=== PATIENT | female | born 1960 | race Caucasian/White ===

== ENCOUNTER → 2019-04-17 | Outpatient (CLI) | payer MEDICARE, MEDICAID ==
[~2019-04-17] MED LIST: ALDACTONE50 MG PO; BUSPAR DIVIDOSE15 MG PO; DESYREL DIVIDO150 M1 PO; EFFEXOR XR75 MG/CAP PO; K-TAB20 PO; LASIX 20MG TABL20 MG PO; LATUDA60 MG PO; LEVOXYL0.075 MG PO; MINIPRESS2 MG PO; NEURONTIN600 MG/TAB PO; PROTONIX 40MG T40 MG PO; TOPROL XL 25MG25 MG PO; ZOCOR 40MG40 MG PO
== END ==
LOC: BHSO 10:42
DX: F31.81 Bipolar II disorder (principal)

== ENCOUNTER → 2019-05-15 | Outpatient (CLI) | payer MEDICARE, MEDICAID | LOC: BHSO 10:30 | DX: F31.81 Bipolar II disorder (principal) | CPT/HCPCS: G0463 ==

== ENCOUNTER 2019-06-09 22:46 | Emergency (ER) | payer MEDICARE, MEDICAID ==
[~2019-06-09] VITALS: Ht 172.7 cm; Wt 92.7 kg
[2019-06-09 23:19] LABS: BASO % 0.4 % (0.0-2.0); EOS # 0.2 (0.0-0.7); EOS % 2.9 % (0-4.0); GRAN # 3.1 (1.4-6.5); GRAN % 59.3 % (42.2-75.2); HEMATOCRIT 38.7 % (37.0-47.0); HEMOGLOBIN 12.8 g/dl (12.5-16.0); LYMPH # 1.2 (1.2-3.4); LYMPH % 22.7 % (20.0-51.0); MEAN CELL VOLUME 91 fl (80.0-100.0); MEAN CORPUSCULAR HEMOGLOBIN 30 pg (27.0-31.0); MEAN CORPUSCULAR HGB CONC 33 g/dl (33.0-37.0); MEAN PLATELET VOLUME 10.4 fl (7.4-10.4); MONO # 0.8 (0.1-0.6); MONO % 14.3 % (1.7-9.3); PLATELET COUNT 143 K/mm3 (130-400); RED BLOOD COUNT 4.27 M/mm3 (4.10-5.30); REDCELL DISTRIBUTION WIDTH-CV 13.2 % (11.5-14.5)
[2019-06-09 23:23] LABS: PROTHROMBIN TIME 11.2 SECONDS (9.7-12.8)
[2019-06-09 23:26] LABS: ALBUMIN 4.3 gm/dL (3.5-5.0); BILIRUBIN,TOTAL 0.4 mg/dL (0.0-1.0); CREATININE, serum 1.09 (0.52-1.25); POTASSIUM 3.8 mmol/L (3.4-5.0); TOTAL PROTEIN 7.5 gm/dL (6.4-8.2)
[2019-06-10 01:46] LABS: TROPONIN-I 0.018 ng/mL (0.000-0.035)
[2019-06-10 02:55] VITALS: BP 123/88; PULSE 88; TEMP 99
== END 2019-06-10 02:55 | disposition home or self-care (01) ==
LOC: COL.ER 22:46
PROVIDERS: Emergency Medicine
DX: I50.9 Heart failure, unspecified (principal); I48.91 Unspecified atrial fibrillation; E03.9 Hypothyroidism, unspecified; K21.9 Gastro-esophageal reflux disease without esophagitis; J40 Bronchitis, not specified as acute or chronic; Z98.51 Tubal ligation status; Z95.0 Presence of cardiac pacemaker
CPT/HCPCS: A4216; J0696; J1940

== ENCOUNTER → 2019-08-16 | Outpatient (CLI) | payer MEDICARE, MEDICAID | LOC: BHSO 10:39 | DX: F31.81 Bipolar II disorder (principal) | CPT/HCPCS: G0463 ==

== ENCOUNTER → 2019-09-04 | Outpatient (CLI) | payer MEDICARE, MEDICAID ==
[2019-09-04 11:29] LABS: MEAN CELL VOLUME 91 fl (80.0-100.0); MEAN CORPUSCULAR HEMOGLOBIN 30 pg (27.0-31.0); MEAN CORPUSCULAR HGB CONC 33 g/dl (33.0-37.0); MEAN PLATELET VOLUME 10.1 fl (7.4-10.4); PLATELET COUNT 166 K/mm3 (130-400); REDCELL DISTRIBUTION WIDTH-CV 13.2 % (11.5-14.5)
== END ==
LOC: COL.RAD 11:01
PROVIDERS: Internal Medicine
DX: R50.9 Fever, unspecified (principal); R05 Cough; Z95.9 Presence of cardiac and vascular implant and graft, unspecified

== ENCOUNTER → 2019-09-13 | Outpatient (CLI) | payer MEDICARE, MEDICAID, OTHER | LOC: COL.RAD 14:27 | DX: R05 Cough (principal); Z95.0 Presence of cardiac pacemaker | CPT/HCPCS: Q9967 ==

== ENCOUNTER → 2019-11-01 | Outpatient (CLI) | payer MEDICARE, MEDICAID | LOC: COL.RAD 10:50 | DX: R10.9 Unspecified abdominal pain (principal) ==

== ENCOUNTER → 2019-11-08 | Outpatient (CLI) | payer MEDICARE, MEDICAID | LOC: COL.RAD 11:20 | DX: K57.30 Diverticulosis of large intestine without perforation or abscess without bleeding (principal) ==

== ENCOUNTER → 2019-12-27 | Outpatient (CLI) | payer MEDICARE, MEDICAID | LOC: BHSO 14:07 | DX: F31.81 Bipolar II disorder (principal) | CPT/HCPCS: G0463 ==

== ENCOUNTER 2020-01-18 08:33 | Emergency (ER) | payer MEDICARE, MEDICAID ==
[~2020-01-18] VITALS: Ht 172.7 cm; Wt 95.0 kg
[2020-01-18 08:34] VITALS: TEMP 98.7
[2020-01-18 09:13] LABS: BASO # 0.1 (0.0-0.2); BASO % 0.8 % (0.0-2.0); EOS # 0.1 (0.0-0.7); EOS % 2.1 % (0-4.0); GRAN # 3.3 (1.4-6.5); GRAN % 53.3 % (42.2-75.2); HEMATOCRIT 41.6 % (37.0-47.0); HEMOGLOBIN 14.1 g/dl (12.5-16.0); LYMPH % 31.7 % (20.0-51.0); MEAN CELL VOLUME 93 fl (80.0-100.0); MEAN CORPUSCULAR HEMOGLOBIN 32 pg (27.0-31.0); MEAN CORPUSCULAR HGB CONC 34 g/dl (33.0-37.0); MEAN PLATELET VOLUME 10.5 fl (7.4-10.4); MONO # 0.7 (0.1-0.6); MONO % 11.8 % (1.7-9.3); PLATELET COUNT 174 K/mm3 (130-400); RED BLOOD COUNT 4.47 M/mm3 (4.10-5.30); REDCELL DISTRIBUTION WIDTH-CV 12.3 % (11.5-14.5)
[2020-01-18 09:17] LABS: INR 1.2 (0.8-3.0); PROTHROMBIN TIME 13.2 SECONDS (9.7-12.8)
[2020-01-18 09:20] LABS: PARTIAL THROMBOPLASTIN TIME 39.5 SECONDS (26.0-37.0)
[2020-01-18 09:20] LABS: COLLECTION METHOD CLEAN CATCH
[2020-01-18 09:25] LABS: ALBUMIN 4.4 gm/dL (3.5-5.0); BILIRUBIN,TOTAL 0.6 mg/dL (0.0-1.0); CALCIUM 9.6 mg/dL (8.4-10.2); CREATININE, serum 1.14 (0.52-1.25); POTASSIUM 4.1 mmol/L (3.4-5.0); TOTAL PROTEIN 7.8 gm/dL (6.4-8.2)
[2020-01-18 09:27] LABS: PH 5 (5-8); SQUAMOUS EPITHELIAL 0-2 /hpf; URINE APPEARANCE Clear; URINE BACTERIA None Seen /hpf; URINE BILIRUBIN Negative (NEGATIVE); URINE BLOOD Negative (NEGATIVE); URINE COLOR Straw; URINE GLUCOSE Negative (NEGATIVE); URINE KETONE Negative (NEGATIVE); URINE LEUKOCYTE ESTERASE 1+ (NEGATIVE); URINE NITRATE Negative (NEGATIVE); URINE PROTEIN(semi-quant) Negative (NEGATIVE); URINE RBC 0-2 /hpf; URINE UROBILINOGEN Negative (NEGATIVE)
[2020-01-18 09:36] LABS: TROPONIN-I 0.016 ng/mL (0.000-0.035)
[2020-01-18 10:04] VITALS: BP 115/81; PULSE 80
== END 2020-01-18 10:08 | disposition home or self-care (01) ==
LOC: COL.ER 08:33
PROVIDERS: Family Medicine
DX: R55 Syncope and collapse (principal); I50.9 Heart failure, unspecified; Z95.9 Presence of cardiac and vascular implant and graft, unspecified

== ENCOUNTER 2020-02-12 06:53 | Day surgery (SDC) | payer MEDICARE, MEDICAID ==
[~2020-02-12] VITALS: Ht 172.7 cm; Wt 96.3 kg
[2020-02-12] MEDS ORDERED: SYNTHROID0.075 MG/T PO (07:17)
[2020-02-12] MEDS ORDERED: ENTRESTO 24 MG1 EACH PO (07:17)
[2020-02-12] MEDS ORDERED: PROTONIX 40MG T40 MG PO (07:17)
[2020-02-12] MEDS ORDERED: ASPIRIN 81M81 MG/TA2 PO (07:18)
[2020-02-12] MEDS ORDERED: ALDACTONE50 MG PO (07:18)
[2020-02-12] MEDS ORDERED: DIGITEK0.25 MG PO (07:19)
[2020-02-12] MEDS ORDERED: BUSPAR DIVIDOSE15 MG PO (07:19)
[2020-02-12] MEDS ORDERED: NEURONTIN600 MG/TAB PO (07:19)
[2020-02-12] MEDS ORDERED: EFFEXOR-XR150 MG PO (07:20)
[2020-02-12] MEDS ORDERED: DESYREL DIVIDO150 M1 PO (07:20)
[2020-02-12 07:21] VITALS: BP 123/79; PULSE 84; TEMP 97.6
[2020-02-12] MEDS ORDERED: VRAYLAR4.5 MG PO (07:21)
[2020-02-12] MEDS ORDERED: ELIQUIS 2.5 PO (07:21)
[2020-02-12 10:15] VITALS: BP 143/82; PULSE 75; TEMP 97.7
--- NOTE | 2020-02-12 10:15 | NUR ---
The patient arrived back to [facility] from the endoscopy suite at this time. The patient ambulated from the cart to the bathroom and then to the recliner in her room with stand by assistance of one nurse and appeared to tolerate the activity well. Post operative vital signs were started at this time. The patient requests to try some ice water and a muffin at this time. Call light is within reach. Will continue to monitor the patient.
[2020-02-12 10:30] VITALS: BP 124/83; PULSE 85
--- NOTE | 2020-02-12 10:30 | NUR ---
The patient appears to be tolerating the food and drink well. The patient requests to try some coffee also at this time. The patient's vital signs appear stable. Call light is within reach. Will continue to monitor the patient.
[2020-02-12 10:45] VITALS: BP 116/79; PULSE 88
--- NOTE | 2020-02-12 10:45 | NUR ---
The patient verbalizes a desire to be discharged home. The patient's IV to her right anecubital was removed and a pressure dressing was applied to the site. The nurse instructed the patient to get dressed and notify the staff when she is ready to review her discharge paperwork.
--- NOTE | 2020-02-12 11:15 | NUR ---
Discharge instructions were reviewed with the patient at this time. She verbalized understanding and has no questions for the nurse at this time. The patient is dressed and ready to be escorted out.
--- NOTE | 2020-02-12 11:25 | NUR ---
The patient was escorted out via wheelchair to a private vehicle by CANDIDO Ratliff. The patient's belongings and discharge paperwork were sent with her. The patient's friend is present to drive her home.
== END 2020-02-12 11:25 | disposition home or self-care (01) ==
LOC: SDCO 06:53
DX: D12.4 Benign neoplasm of descending colon (principal); K64.0 First degree hemorrhoids; K57.30 Diverticulosis of large intestine without perforation or abscess without bleeding; K31.7 Polyp of stomach and duodenum; K29.30 Chronic superficial gastritis without bleeding; N18.9 Chronic kidney disease, unspecified; K58.0 Irritable bowel syndrome with diarrhea; E03.9 Hypothyroidism, unspecified; I50.20 Unspecified systolic (congestive) heart failure; I42.0 Dilated cardiomyopathy; I34.0 Nonrheumatic mitral (valve) insufficiency; I25.2 Old myocardial infarction; M79.7 Fibromyalgia; F31.9 Bipolar disorder, unspecified; F41.9 Anxiety disorder, unspecified; M19.90 Unspecified osteoarthritis, unspecified site; Z88.1 Allergy status to other antibiotic agents; Z95.810 Presence of automatic (implantable) cardiac defibrillator; Z88.8 Allergy status to other drugs, medicaments and biological substances; Z79.82 Long term (current) use of aspirin; Z79.01 Long term (current) use of anticoagulants; Z79.899 Other long term (current) drug therapy
CPT/HCPCS: J2704; J7030

== ENCOUNTER → 2020-03-26 | Outpatient (CLI) | payer MEDICARE, MEDICAID ==
[~2020-03-26] MED LIST changes: +ASPIRIN 81M81 MG/TA2 PO; +DIGITEK0.25 MG PO; +EFFEXOR-XR150 MG PO; +ELIQUIS 2.5 PO; +ENTRESTO 24 MG1 EACH PO; +SYNTHROID0.075 MG/T PO; +VRAYLAR4.5 MG PO
== END ==
LOC: MC.RAD 07:45
DX: Z12.31 Encounter for screening mammogram for malignant neoplasm of breast (principal)

== ENCOUNTER → 2020-03-27 | Outpatient (CLI) | payer MEDICARE, MEDICAID | LOC: BHSO 14:06 | DX: F31.81 Bipolar II disorder (principal) | CPT/HCPCS: G0463 ==

== ENCOUNTER → 2020-04-23 | Outpatient (CLI) | payer MEDICARE, MEDICAID ==
[~2020-04-23] VITALS: Ht 170.2 cm; Wt 99.1 kg
[~2020-04-23] MED LIST changes: -ASPIRIN 81M81 MG/TA2 PO; +ASPIRIN E.C. 8181 MG PO; +BYSTOLIC2.5 MG PO; +VYTORIN 10 MG-21 TAB PO
[2020-04-23 09:16] VITALS: BP 110/80; PULSE 76
== END ==
LOC: LIGHT 08:49
DX: E66.8 Other obesity (principal); Z68.34 Body mass index [BMI] 34.0-34.9, adult; E88.81 Metabolic syndrome and other insulin resistance; R73.01 Impaired fasting glucose
CPT/HCPCS: G0463

== ENCOUNTER → 2020-05-15 | Outpatient (CLI) | payer MEDICARE, MEDICAID ==
[~2020-05-15] VITALS: Ht 170.2 cm; Wt 99.6 kg
[~2020-05-15] MED LIST changes: -BYSTOLIC2.5 MG PO; +BYSTOLIC5 MG PO
[2020-05-15 11:30] VITALS: BP 118/76; PULSE 80
== END ==
LOC: LIGHT 11:26
DX: E66.8 Other obesity (principal); Z68.34 Body mass index [BMI] 34.0-34.9, adult; E88.81 Metabolic syndrome and other insulin resistance; R73.01 Impaired fasting glucose
CPT/HCPCS: G0463

== ENCOUNTER 2020-12-24 17:03 | Observation (INO) | payer MEDICARE, MEDICAID ==
[~2020-12-24] VITALS: Ht 170.2 cm; Wt 104.0 kg
[2020-12-24] MEDS ORDERED: REXULTI1 MG PO ×2 (17:22→21:44)
[2020-12-24 17:31] LABS: BASO % 0.6 % (0.0-2.0); EOS # 0.2 (0.0-0.7); EOS % 2.2 % (0-4.0); GRAN # 3.7 (1.4-6.5); GRAN % 54.2 % (42.2-75.2); HEMATOCRIT 40.2 % (37.0-47.0); HEMOGLOBIN 13.8 g/dl (12.5-16.0); LYMPH # 2.1 (1.2-3.4); LYMPH % 31.2 % (20.0-51.0); MEAN CELL VOLUME 94 fl (80.0-100.0); MEAN CORPUSCULAR HEMOGLOBIN 32 pg (27.0-31.0); MEAN CORPUSCULAR HGB CONC 34 g/dl (33.0-37.0); MEAN PLATELET VOLUME 10.3 fl (7.4-10.4); MONO # 0.8 (0.1-0.6); MONO % 11.5 % (1.7-9.3); PLATELET COUNT 176 K/mm3 (130-400); RED BLOOD COUNT 4.27 M/mm3 (4.10-5.30); REDCELL DISTRIBUTION WIDTH-CV 12.4 % (11.5-14.5)
[2020-12-24 17:44] LABS: ALANINE AMINOTRANSFERASE 33 U/L (4-34); ALBUMIN 4.5 gm/dL (3.5-5.0); ALKALINE PHOSPHATASE 53 U/L (50-136); ANION GAP 8 mmol/L (7-16); AST,SGOT 27 U/L (15-37); BILIRUBIN,TOTAL 0.4 mg/dL (0.0-1.0); BLOOD UREA NITROGEN 26 mg/dL (7-17); C-REACTIVE PROTEIN 0.8 mg/dL (0.0-0.9); CALCIUM 9.9 mg/dL (8.4-10.2); CARBON DIOXIDE 25 mmol/L (22-30); CHLORIDE 106 mmol/L (98-107); CREATININE, serum 1.22 (0.52-1.25); GLUCOSE 95 mg/dL (74-106); LIPASE 166 U/L (23-300); POTASSIUM 4.4 mmol/L (3.4-5.0); SODIUM 139 mmol/L (137-145); TOTAL PROTEIN 7.6 gm/dL (6.4-8.2)
[2020-12-24 17:48] LABS: INR 1.2 (0.8-3.0); PROTHROMBIN TIME 13.5 SECONDS (9.7-12.8)
[2020-12-24] MEDS ORDERED: LAMICTAL 100MG100 MG PO (18:02)
[2020-12-24 18:05] LABS: TROPONIN-I < 0.012 ng/mL (0.000-0.035)
[2020-12-24] MEDS ORDERED: FARXIGA5 PO (18:05)
[2020-12-24] MEDS ORDERED: MELATONIN5 M1 PO (18:06)
[2020-12-24] MEDS ORDERED: ENTRESTO 49 MG1 EACH PO (18:55)
[2020-12-24] MEDS ORDERED: NEURONTIN600 MG/TAB PO (19:29)
--- NOTE | 2020-12-24 21:00 | NUR ---
PT ADMITTED TO ROOM 346 PER BED. A&OX4. DENIES PAIN,OR SHORTNESS OF BREATH.
[2020-12-24 21:15] LABS: TSH w REFLEX 1.28 uIU/mL (0.465-4.680)
[2020-12-24 21:33] VITALS: BP 114/60; PULSE 65; TEMP 98.3
--- NOTE | 2020-12-24 22:30 | NUR ---
PT JUST FINSHED SANDWICH BOX AND TOOK HS MEDICATIONS. NOW C/O CHEST PAIN LEVEL 3/10 LT SUBSTERNAL. NO DYSPNEA. PT QUIETLY IN BED.
--- NOTE | 2020-12-24 22:50 | NUR ---
PT RELATES FEELS BETTER NOW. MOSTLY RESOLVED. ATTEMPTED TO NOTIFY [facility] TO REQUEST PO PAIN MED. WILL ATTEMPT AGAIN.
[2020-12-24 23:50] VITALS: BP 93/51; PULSE 65; TEMP 98.1
--- NOTE | 2020-12-25 01:11 | NUR ---
PT WAKES ON THIS NURSE ENTERING ROOM. PT REPORTS CHEST PAIN IS MUCH BETTER NOW. PT REPORTS JUST FEELS ALITTLE ANXIOUS BEING IN THE HOSPITAL. IV NS AT 30CC/HR PER PUMP TO RT HAND SITE.
[2020-12-25 03:27] VITALS: BP 106/66; PULSE 74; TEMP 98
--- NOTE | 2020-12-25 04:01 | NUR ---
SEE MAR FOR MS AND MAALOX GIVEN FOR EPIGASTRIC PAIN. LEVEL 2-3/10
[2020-12-25 06:58] LABS: BASO % 0.8 % (0.0-2.0); EOS # 0.1 (0.0-0.7); EOS % 2.5 % (0-4.0); GRAN # 2.6 (1.4-6.5); GRAN % 49.6 % (42.2-75.2); HEMATOCRIT 40.2 % (37.0-47.0); HEMOGLOBIN 13.3 g/dl (12.5-16.0); LYMPH # 1.9 (1.2-3.4); MEAN CORPUSCULAR HEMOGLOBIN 33 pg (27.0-31.0); MEAN CORPUSCULAR HGB CONC 33 g/dl (33.0-37.0); MEAN PLATELET VOLUME 10.7 fl (7.4-10.4); MONO # 0.6 (0.1-0.6); MONO % 11.7 % (1.7-9.3); PLATELET COUNT 169 K/mm3 (130-400); RED BLOOD COUNT 4.08 M/mm3 (4.10-5.30); REDCELL DISTRIBUTION WIDTH-CV 12.5 % (11.5-14.5)
[2020-12-25 07:00] LABS: MEAN CELL VOLUME 99 fl (80.0-100.0)
[2020-12-25 07:08] LABS: CHOLESTEROL 162 mg/dL (120-200); HDL CHOLESTEROL 32 mg/dL; LDL CHOLESTEROL 69 mg/dL; TRIGLYCERIDE 305 mg/dL
[2020-12-25 07:17] VITALS: BP 104/60; PULSE 68; TEMP 98
[2020-12-25 07:34] LABS: TROPONIN-I < 0.012 ng/mL (0.000-0.035)
--- NOTE | 2020-12-25 08:00 | NUR ---
Patient sitting up in bed. Alert and oriented x 3. Assessment complete. States mild mid-epigastric pain 2/10, denies needs for pain medication at this time. Fluids infusing per orders. Denies needs at this time.
--- NOTE | 2020-12-25 10:46 | NUR ---
Dr. Bello in to see patient.
--- NOTE | 2020-12-25 11:11 | NUR ---
Foil Stamp Operator met with the patient to complete intake. The patient lives alone in [place]. The patient is independent and denies DME use. The patient has a pacemaker. The patient currently does OP Cardiac Rehab at Dr. Son's office twice a week on Tuesdays and for 45 minutes. The patient also pays $182 (Medicare pays the rest) a week for a EHS SPECIALIST from [facility]. The EHS SPECIALIST provides light housekeeping and meal prep. Per EMR the patient's PCP is Dr. Tatiana Cid and receives medications from [facility]. The patient has advanced directives in the EMR. The patient plans to return home and continue OP cardiac rehab and EHS SPECIALIST assistance from [facility]. The patient was interested in contacted her Magaly Roy RN, CM. SW attempted to contact kavin Mckenzie message. *Discharge Disposition: Home with continued OP cardiac rehab and EHS SPECIALIST assistance from [facility]*
--- NOTE | 2020-12-25 11:22 | NUR ---
Patient is lying in bed resting. Alert and oriented x4, vital signs stable, no pain, nausea or vomiting at the moment. Report disconfort in the midline of the chest rating 2 in a 10 scale for pain. Patient is NPO but reports hungry and thirsty. No additional needs at the moment. Call light witghing reach.
[2020-12-25 11:51] VITALS: BP 119/61; PULSE 66; TEMP 97.8
--- NOTE | 2020-12-25 12:50 | NUR ---
Patient up ambulating in [place] independently, steady gait.
--- NOTE | 2020-12-25 13:21 | NUR ---
Initial visit; Patient thanked Business Integration Analyst for looking in on her, praying with her and keeping her in Business Integration Analyst's prayers.
== END 2020-12-25 16:28 | disposition home or self-care (01) ==
LOC: COL.ER 17:03 → MEDICAL 18:23 → SURG 18:42
PROVIDERS: Nurse Practitioner; Nurse Practitioner Family; ADMIT Student in an Organized Health Care Education/Training Program
DX: R07.89 Other chest pain (principal); I50.22 Chronic systolic (congestive) heart failure; I11.0 Hypertensive heart disease with heart failure; E78.5 Hyperlipidemia, unspecified; E03.9 Hypothyroidism, unspecified; K21.9 Gastro-esophageal reflux disease without esophagitis; M79.7 Fibromyalgia; F31.9 Bipolar disorder, unspecified; F41.1 Generalized anxiety disorder; F41.0 Panic disorder [episodic paroxysmal anxiety]; F43.10 Post-traumatic stress disorder, unspecified; Z79.890 Hormone replacement therapy; Z79.899 Other long term (current) drug therapy; Z79.82 Long term (current) use of aspirin; Z87.891 Personal history of nicotine dependence; Z80.3 Family history of malignant neoplasm of breast; Z83.3 Family history of diabetes mellitus; Z79.891 Long term (current) use of opiate analgesic
CPT/HCPCS: G0378; J2270; J7030

== ENCOUNTER 2021-02-20 06:42 | Emergency (ER) | payer MEDICARE, MEDICAID ==
[~2021-02-20] VITALS: Ht 170.2 cm; Wt 97.3 kg
[~2021-02-20 06:42] MED LIST changes: +ENTRESTO 49 MG1 EACH PO; +FARXIGA5 PO; +LAMICTAL 100MG100 MG PO; +MELATONIN5 M1 PO; +REXULTI1 MG PO
[2021-02-20 06:45] VITALS: TEMP 98.6
[2021-02-20 07:36] LABS: ALBUMIN 4.5 gm/dL (3.5-5.0); BILIRUBIN,TOTAL 0.4 mg/dL (0.0-1.0); CALCIUM 9.7 mg/dL (8.4-10.2); CREATININE, serum 1.21 (0.52-1.25); POTASSIUM 4.2 mmol/L (3.4-5.0)
[2021-02-20 07:37] LABS: INR 1.1 (0.8-3.0); PROTHROMBIN TIME 12.5 SECONDS (9.7-12.8)
[2021-02-20 07:41] LABS: BASO # 0.1 (0.0-0.2); BASO % 1.1 % (0.0-2.0); EOS # 0.3 (0.0-0.7); EOS % 4.8 % (0-4.0); GRAN # 3.4 (1.4-6.5); GRAN % 47.7 % (42.2-75.2); HEMATOCRIT 41.5 % (37.0-47.0); HEMOGLOBIN 13.9 g/dl (12.5-16.0); LYMPH # 2.5 (1.2-3.4); LYMPH % 35.9 % (20.0-51.0); MEAN CELL VOLUME 95 fl (80.0-100.0); MEAN CORPUSCULAR HEMOGLOBIN 32 pg (27.0-31.0); MEAN CORPUSCULAR HGB CONC 34 g/dl (33.0-37.0); MEAN PLATELET VOLUME 10.8 fl (7.4-10.4); MONO # 0.7 (0.1-0.6); MONO % 10.4 % (1.7-9.3); PLATELET COUNT 181 K/mm3 (130-400); RED BLOOD COUNT 4.38 M/mm3 (4.10-5.30); REDCELL DISTRIBUTION WIDTH-CV 12.4 % (11.5-14.5)
[2021-02-20 07:58] LABS: TROPONIN-I 0.036 ng/mL (0.000-0.035)
[2021-02-20] MEDS ORDERED: LASIX 40MG TABL40 MG PO (11:04)
[2021-02-20 11:55] VITALS: BP 110/71; PULSE 71
== END 2021-02-20 12:00 | disposition home or self-care (01) ==
LOC: COL.ER 06:42
PROVIDERS: Family Medicine
DX: R07.89 Other chest pain (principal); I10 Essential (primary) hypertension; E11.40 Type 2 diabetes mellitus with diabetic neuropathy, unspecified; F41.9 Anxiety disorder, unspecified; E03.9 Hypothyroidism, unspecified; R74.8 Abnormal levels of other serum enzymes; M79.7 Fibromyalgia; K21.9 Gastro-esophageal reflux disease without esophagitis; F31.9 Bipolar disorder, unspecified; F41.1 Generalized anxiety disorder; Z79.899 Other long term (current) drug therapy; Z79.890 Hormone replacement therapy; Z79.01 Long term (current) use of anticoagulants; Z87.891 Personal history of nicotine dependence; Z95.0 Presence of cardiac pacemaker
CPT/HCPCS: J1940

== ENCOUNTER → 2021-02-26 | Outpatient (CLI) | payer MEDICARE, MEDICAID ==
[~2021-02-26] MED LIST changes: +LASIX 40MG TABL40 MG PO
== END ==
LOC: ZCOL.LAB 12:21
DX: M62.89 Other specified disorders of muscle (principal); I50.9 Heart failure, unspecified; E66.9 Obesity, unspecified

== ENCOUNTER → 2021-06-30 | Outpatient (CLI) | payer MEDICARE, MEDICAID ==
[2021-06-30 17:59] LABS: BASO # 0.1 K/mm3 (0.0-0.2); BASO % 0.9 % (0.0-2.0); EOS # 0.2 K/mm3 (0.0-0.7); EOS % 2.9 % (0.0-4.0); GRAN # 3.3 K/mm3 (1.4-6.5); GRAN % 50.7 % (42.2-75.2); HEMATOCRIT 39.9 % (37.0-47.0); HEMOGLOBIN 13.4 g/dl (12.5-16.0); LYMPH # 2.3 K/mm3 (1.2-3.4); LYMPH % 34.2 % (20.0-51.0); MEAN CELL VOLUME 95 fl (80.0-100.0); MEAN CORPUSCULAR HEMOGLOBIN 32 pg (27-31); MEAN CORPUSCULAR HGB CONC 34 g/dl (33.0-37.0); MONO # 0.7 K/mm3 (0.1-0.6); MONO % 10.8 % (1.7-9.3); PLATELET COUNT 167 K/mm3 (130-400); RED BLOOD COUNT 4.19 M/mm3 (4.10-5.30); REDCELL DISTRIBUTION WIDTH-CV 12.9 % (11.5-14.5)
[2021-06-30 18:13] LABS: ALBUMIN 4.3 gm/dL (3.4-4.8); BILIRUBIN,TOTAL 0.4 mg/dL (0.2-1.2); C-REACTIVE PROTEIN 0.55 mg/dL (0.00-0.50); CALCIUM 9.3 mg/dL (8.4-10.2); CREATININE, serum 1.42 mg/dL (0.57-1.11); MAGNESIUM 2.3 mg/dL (1.6-2.6); TOTAL PROTEIN 7.7 gm/dL (6.2-8.1)
[2021-06-30 18:19] LABS: TROPONIN-I 0.013 ng/mL (0.00-0.033)
[2021-06-30 18:31] LABS: ERYTHROCYTE SEDIMENTATION RATE 9 mm/hr (0-30)
== END ==
LOC: ZCOL.LAB 17:17
PROVIDERS: Nurse Practitioner
DX: Z45.02 Encounter for adjustment and management of automatic implantable cardiac defibrillator (principal); I50.22 Chronic systolic (congestive) heart failure

== ENCOUNTER → 2021-07-08 | Outpatient (CLI) | payer MEDICARE, MEDICAID | LOC: MC.RAD 12:52 | DX: Z12.31 Encounter for screening mammogram for malignant neoplasm of breast (principal) ==

== ENCOUNTER 2021-08-03 21:08 | Emergency (ER) | payer MEDICARE, MEDICAID ==
[~2021-08-03] VITALS: Ht 170.2 cm; Wt 113.6 kg
[2021-08-03 21:24] LABS: BASO # 0.1 K/mm3 (0.0-0.2); BASO % 0.7 % (0.0-2.0); EOS # 0.2 K/mm3 (0.0-0.7); EOS % 3.1 % (0.0-4.0); GRAN # 3.3 K/mm3 (1.4-6.5); HEMATOCRIT 39.3 % (37.0-47.0); HEMOGLOBIN 13.8 g/dl (12.5-16.0); LYMPH # 2.4 K/mm3 (1.2-3.4); LYMPH % 35.8 % (20.0-51.0); MEAN CELL VOLUME 94 fl (80.0-100.0); MEAN CORPUSCULAR HEMOGLOBIN 33 pg (27-31); MEAN CORPUSCULAR HGB CONC 35 g/dl (33.0-37.0); MONO # 0.7 K/mm3 (0.1-0.6); MONO % 10.7 % (1.7-9.3); PLATELET COUNT 158 K/mm3 (130-400); RED BLOOD COUNT 4.17 M/mm3 (4.10-5.30); REDCELL DISTRIBUTION WIDTH-CV 12.8 % (11.5-14.5)
[2021-08-03 21:45] LABS: ALANINE AMINOTRANSFERASE 38 U/L (0-55); ALBUMIN 4.2 gm/dL (3.4-4.8); ALKALINE PHOSPHATASE 60 U/L (40-150); ANION GAP 14 mmol/L (7-16); AST,SGOT 20 U/L (5-34); BILIRUBIN,TOTAL 0.3 mg/dL (0.2-1.2); BLOOD UREA NITROGEN 16 mg/dL (10-20); CARBON DIOXIDE 22 mmol/L (23-31); CHLORIDE 104 mmol/L (98-107); GLUCOSE 175 mg/dL (70-99); SODIUM 140 mmol/L (136-145); TOTAL PROTEIN 7.8 gm/dL (6.2-8.1)
[2021-08-03 22:07] LABS: ALCOHOL(ethanol),MEDICAL < 10 mg/dL (0-10); CREATININE, serum 1.34 mg/dL (0.57-1.11); SALICYLATE < 5.0 mg/dL (15.0-30.0)
[2021-08-03 22:33] LABS: COLLECTION METHOD CLEAN CATCH
[2021-08-03 22:39] LABS: PH 5 (5-8); URINE APPEARANCE Hazy (CLEAR/HAZY); URINE BACTERIA Rare /hpf (NONE SEEN); URINE BILIRUBIN Negative (NEGATIVE); URINE BLOOD Negative (NEGATIVE); URINE COLOR Yellow (YELLOW); URINE GLUCOSE 2+ (NEGATIVE); URINE KETONE Negative (NEGATIVE); URINE LEUKOCYTE ESTERASE Trace (NEGATIVE); URINE NITRATE Negative (NEGATIVE); URINE PROTEIN(semi-quant) Negative (NEGATIVE); URINE RBC 0-2 /hpf (0-2); URINE UROBILINOGEN Negative (NEGATIVE)
[2021-08-03 22:51] LABS: TRICYCLIC ANTIDEPRESS URINE NEGATIVE
[2021-08-04 00:55] VITALS: BP 133/79; PULSE 70; TEMP 98
== END 2021-08-04 00:55 | disposition short-term general hospital (02) ==
LOC: COL.ER 21:08
PROVIDERS: Student in an Organized Health Care Education/Training Program
DX: T40.2X2A Poisoning by other opioids, intentional self-harm, initial encounter (principal); T14.91XA Suicide attempt, initial encounter; I50.9 Heart failure, unspecified; I11.0 Hypertensive heart disease with heart failure; F32.A Depression, unspecified; Z79.82 Long term (current) use of aspirin; Z79.899 Other long term (current) drug therapy; X83.8XXA Intentional self-harm by other specified means, initial encounter

== ENCOUNTER 2021-08-30 14:49 | Emergency (ER) | payer MEDICARE, MEDICAID ==
[~2021-08-30] VITALS: Ht 170.2 cm; Wt 104.1 kg
[2021-08-30 14:50] VITALS: TEMP 99
[2021-08-30] MEDS ORDERED: MEDROL 4MG DOSPA4 MG PO (15:49)
[2021-08-30] MEDS ORDERED: FLEXERIL 1010 MG/TAB PO (15:50)
[2021-08-30 16:20] VITALS: BP 123/83; PULSE 72
== END 2021-08-30 16:20 | disposition home or self-care (01) ==
LOC: COL.ER 14:49
DX: M54.16 Radiculopathy, lumbar region (principal); I11.0 Hypertensive heart disease with heart failure; I50.20 Unspecified systolic (congestive) heart failure; E78.5 Hyperlipidemia, unspecified; E03.9 Hypothyroidism, unspecified; K21.9 Gastro-esophageal reflux disease without esophagitis; M79.7 Fibromyalgia; F31.9 Bipolar disorder, unspecified; F60.3 Borderline personality disorder; F41.0 Panic disorder [episodic paroxysmal anxiety]; Z87.891 Personal history of nicotine dependence; Z79.82 Long term (current) use of aspirin; Z79.890 Hormone replacement therapy; Z79.899 Other long term (current) drug therapy

== ENCOUNTER 2022-01-26 22:08 | Inpatient (IN) | payer MEDICARE, MEDICAID ==
[~2022-01-26] VITALS: Ht 172.7 cm; Wt 103.9 kg
[~2022-01-26 22:08] MED LIST changes: +FLEXERIL 1010 MG/TAB PO; +MEDROL 4MG DOSPA4 MG PO
[2022-01-26 22:46] LABS: HEMATOCRIT 39.5 % (37.0-47.0); HEMOGLOBIN 13.4 g/dl (12.5-16.0); MEAN CELL VOLUME 96 fl (80.0-100.0); MEAN CORPUSCULAR HEMOGLOBIN 33 pg (27-31); MEAN CORPUSCULAR HGB CONC 34 g/dl (33.0-37.0); MEAN PLATELET VOLUME 10.1 fl (7.4-10.4); PLATELET COUNT 172 K/mm3 (130-400); REDCELL DISTRIBUTION WIDTH-CV 12.9 % (11.5-14.5)
[2022-01-26 23:08] LABS: ALBUMIN 3.9 gm/dL (3.4-4.8); BILIRUBIN,TOTAL 0.4 mg/dL (0.2-1.2); C-REACTIVE PROTEIN 0.56 mg/dL (0.00-0.50); CALCIUM 8.8 mg/dL (8.4-10.2); CREATININE, serum 2.03 mg/dL (0.57-1.11); POTASSIUM 4.2 mmol/L (3.5-4.5); TOTAL PROTEIN 7.1 gm/dL (6.2-8.1)
[2022-01-26 23:15] LABS: TROPONIN-I 0.012 ng/mL (0.00-0.033)
[2022-01-26 23:42] LABS: COLLECTION METHOD CLEAN CATCH
[2022-01-26 23:51] LABS: MUCOUS Present (NOT PRESENT); PH 5 (5-8); SQUAMOUS EPITHELIAL 0-2 /hpf (0-10); URINE APPEARANCE Clear (CLEAR/HAZY); URINE BACTERIA Rare /hpf (NONE SEEN); URINE BLOOD Negative (NEGATIVE); URINE COLOR Yellow (YELLOW); URINE GLUCOSE 3+ (NEGATIVE); URINE KETONE Negative (NEGATIVE); URINE NITRATE Negative (NEGATIVE); URINE PROTEIN(semi-quant) Negative (NEGATIVE); URINE RBC 0-2 /hpf (0-2); URINE UROBILINOGEN Negative (NEGATIVE)
[2022-01-26 23:52] LABS: BAND 2 % (0-10); EOSINOPHIL 24 % (0-4); LYMPHOCYTE 28 % (20.0-51.0); NEUTROPHILS 38 % (42.0-75.2); PLATELET ESTIMATE NORMAL (NORMAL)
[2022-01-27] VITALS (761 sets, daily range): BP systolic 97–117; BP diastolic 45–67; PULSE 60–74; TEMP 98.1–98.6; O2SAT 81–100
[2022-01-27] MEDS ORDERED: LAMICTAL 100MG100 MG PO (03:09)
[2022-01-27] MEDS ORDERED: DESYREL 100MG100 MG PO (03:10)
[2022-01-27] MEDS ORDERED: ELIQUIS 2.5 PO (03:11)
[2022-01-27] MEDS ORDERED: ENTRESTO 49 MG1 EACH PO ×2 (03:12→03:13)
[2022-01-27] MEDS ORDERED: FARXIGA10 PO (03:14)
[2022-01-27] MEDS ORDERED: LATUDA60 MG PO (03:14)
[2022-01-27] MEDS ORDERED: VERQUVO10 MG PO (03:14)
--- NOTE | 2022-01-27 05:48 | NUR ---
PATIENT ARRIVED TO ICU 4 AT 312. PATIENT ALERT AND ORIENTATED. OFF LEVOPHED SINCE 129. ALL QUESTIONS ANSWERED ORIENTATED TO ICU.
--- NOTE | 2022-01-27 07:00 | NUR ---
BEDSIDE REPORT RECEIVED FROM CANDIDO SHARMA. PT ALERT AND ORIENTED THIS AM. OFFERS NO COMPLAINTS. 20G PIV TO LEFT HAND AND 20G PIV TO LEFT AC.
--- NOTE | 2022-01-27 07:23 | NUR ---
Report given to CANDIDO Garcia
[2022-01-27 07:34] LABS: CALCIUM 8.5 mg/dL (8.4-10.2); CREATININE, serum 1.48 mg/dL (0.57-1.11); MAGNESIUM 2.1 mg/dL (1.6-2.6); POTASSIUM 4.6 mmol/L (3.5-4.5)
[2022-01-27 08:22] LABS: HEMATOCRIT 38.9 % (37.0-47.0); HEMOGLOBIN 12.8 g/dl (12.5-16.0); MEAN CELL VOLUME 99 fl (80.0-100.0); MEAN CORPUSCULAR HEMOGLOBIN 33 pg (27-31); MEAN CORPUSCULAR HGB CONC 33 g/dl (33.0-37.0); MEAN PLATELET VOLUME 11.1 fl (7.4-10.4); RED BLOOD COUNT 3.92 M/mm3 (4.10-5.30)
[2022-01-27 08:23] LABS: PLATELET COUNT 63 K/mm3 (130-400)
[2022-01-27 08:28] LABS: BAND 1 % (0-10); EOSINOPHIL 17 % (0-4); LYMPHOCYTE 37 % (20.0-51.0); NEUTROPHILS 39 % (42.0-75.2); PLATELET ESTIMATE DECREASED (NORMAL)
--- NOTE | 2022-01-27 09:39 | NUR ---
welfare worker met with patient to complete intake. Patient currently lives at home alone in [place]. Patient is mostly independent with her ADL's but does have SOFTWARE APPLICATIONS SPECIALIST through [facility] that comes in to do meal preps and laundry. Patient does not utilize any DME to assist with mobility. Patient has no home oxygen needs. PCP is Dr. Tatiana Cid and she utilizes [facility] pharmacy with no cost difficulty. Patient does have a DPOA-HC established and can be found in her EMR listing her daughter Jerilyn ([phone]).
[2022-01-27 15:29] LABS: CLOSTRIDIUM DIFF A/B NEG; CLOSTRIDIUM DIFF A/B INTERP NonToxigenic C.diff
--- NOTE | 2022-01-27 19:24 | NUR ---
REPORT CALLED TO BOLA REY
--- NOTE | 2022-01-27 19:32 | NUR ---
PATIENT TRANSFERRED TO [facility]. REFUSED TO LET STAFF TAKE HOME MEDS.
[2022-01-28] VITALS (7 sets, daily range): BP systolic 96–142; BP diastolic 45–70; PULSE 59–73; TEMP 98–99.2
[2022-01-28 05:56] LABS: BASO # 0.1 K/mm3 (0.0-0.2); EOS # 1.2 K/mm3 (0.0-0.7); EOS % 17.3 % (0.0-4.0); GRAN # 3.2 K/mm3 (1.4-6.5); GRAN % 46.7 % (42.2-75.2); HEMATOCRIT 37.5 % (37.0-47.0); HEMOGLOBIN 12.6 g/dl (12.5-16.0); LYMPH # 1.9 K/mm3 (1.2-3.4); LYMPH % 27.1 % (20.0-51.0); MEAN CELL VOLUME 98 fl (80.0-100.0); MEAN CORPUSCULAR HEMOGLOBIN 33 pg (27-31); MEAN CORPUSCULAR HGB CONC 34 g/dl (33.0-37.0); MEAN PLATELET VOLUME 10.3 fl (7.4-10.4); MONO # 0.5 K/mm3 (0.1-0.6); MONO % 7.6 % (1.7-9.3); PLATELET COUNT 127 K/mm3 (130-400); RED BLOOD COUNT 3.84 M/mm3 (4.10-5.30); REDCELL DISTRIBUTION WIDTH-CV 12.9 % (11.5-14.5)
[2022-01-28 06:21] LABS: CREATININE, serum 1.19 mg/dL (0.57-1.11)
--- NOTE | 2022-01-28 23:37 | NUR ---
Pt alert and oriented. Follows commands, resting. Denies nausea/vomiting. Pt has had 2 BM's so far this evening. Pt reports the BM's were soft formed vs loose like her past BM's have been. CDiff precautions in place. Pt did report some abdominal cramping, prn tylenol was administered per orders. Pt tolerating PO. Shift assessment performed. Medications administered per orders and education provided. VS stable. HR in 60's and paced. BP stable. On room air. Afebrile. Abdomen is soft. Pt independent in room and has a steady gait. Continuing to monitor BM's. Continuing with antibx per orders. Pt does not report any questions at this time, will continue to monitor.
[2022-01-29 03:59] VITALS: BP 114/63; BP 99/47; PULSE 61; TEMP 97.9
--- NOTE | 2022-01-29 05:34 | NUR ---
No adverse events overnight. Alert and oriented. Up x2 to have a BM. Pt states one BM was soft-formed and the other was watery. Cdiff precautions in place. Pt tolerating PO. Prn tylenol administered overnight for abdominal cramping. PO anitbx continued overnight. VS stable. Pt resting and does not report any questions at this time.
[2022-01-29 07:19] LABS: HEMATOCRIT 41.4 % (37.0-47.0); HEMOGLOBIN 13.9 g/dl (12.5-16.0); MEAN CELL VOLUME 97 fl (80.0-100.0); MEAN CORPUSCULAR HEMOGLOBIN 32 pg (27-31); MEAN CORPUSCULAR HGB CONC 34 g/dl (33.0-37.0); MEAN PLATELET VOLUME 10.5 fl (7.4-10.4); PLATELET COUNT 152 K/mm3 (130-400); RED BLOOD COUNT 4.29 M/mm3 (4.10-5.30); REDCELL DISTRIBUTION WIDTH-CV 12.8 % (11.5-14.5)
[2022-01-29 07:23] LABS: CALCIUM 9.8 mg/dL (8.4-10.2); CREATININE, serum 1.19 mg/dL (0.57-1.11); MAGNESIUM 2.1 mg/dL (1.6-2.6); POTASSIUM 4.4 mmol/L (3.5-4.5)
[2022-01-29 07:58] LABS: BAND 3 % (0-10); BASOPHIL 3 % (0-2); EOSINOPHIL 21 % (0-4); NEUTROPHILS 30 % (42.0-75.2)
[2022-01-29 08:00] VITALS: BP 127/62; PULSE 66; TEMP 99
[2022-01-29 08:00] LABS: LYMPHOCYTE 38 % (20.0-51.0); PLATELET ESTIMATE NORMAL (NORMAL)
--- NOTE | 2022-01-29 08:10 | NUR ---
PT UP TO BATHROOM INDEPENANTLY. PT STATES THAT SHE HAS ONLY HAD 2 BMS THIS AM AND THEY HAVE BEEN "SMALLER ONES" PT STATES THAT SHE IS NOT HAVING ANY ABD PAIN OR DISCOMFORT AT THIS TIME. "I FEEL A LOT BETTER THEN I DID." PT STATES NO CONCERNS OR NEEDS AT THIS TIME. CALL LIGHT IS WITHIN REACH.
[2022-01-29 08:12] VITALS: BP 129/75; PULSE 63
[2022-01-29 08:13] VITALS: BP 107/67; PULSE 105
[2022-01-29] MEDS ORDERED: VANCOCIN H125 MG/CAP PO ×3 (11:38→15:15)
--- NOTE | 2022-01-29 11:55 | NUR ---
Inside Sales Consultant spoke with RN who advised patient has been independent in the room.
[2022-01-29 12:00] VITALS: BP 118/68; PULSE 64; TEMP 98
[2022-01-29] MEDS ORDERED: FIRVANQ25 MG/1 ML PO ×2 (15:00)
== END 2022-01-29 14:55 | disposition home or self-care (01) | DRG 372 ==
LOC: COL.ER 22:08 → ICU 23:23 → MEDICAL 01-27 19:41
PROVIDERS: Family Medicine; Student in an Organized Health Care Education/Training Program; ADMIT Family Medicine
DX: A04.72 Enterocolitis due to Clostridium difficile, not specified as recurrent (principal); I50.22 Chronic systolic (congestive) heart failure; N17.8 Other acute kidney failure; I13.0 Hypertensive heart and chronic kidney disease with heart failure and stage 1 through stage 4 chronic kidney disease, or unspecified chronic kidney disease; N17.9 Acute kidney failure, unspecified; N39.0 Urinary tract infection, site not specified; Z95.810 Presence of automatic (implantable) cardiac defibrillator; E78.5 Hyperlipidemia, unspecified; E03.9 Hypothyroidism, unspecified; E86.1 Hypovolemia; I95.89 Other hypotension; N18.9 Chronic kidney disease, unspecified; Z79.899 Other long term (current) drug therapy; K21.9 Gastro-esophageal reflux disease without esophagitis; M79.7 Fibromyalgia; F31.9 Bipolar disorder, unspecified; F41.1 Generalized anxiety disorder; F41.0 Panic disorder [episodic paroxysmal anxiety]; Z86.16 Personal history of COVID-19; Z20.822 Contact with and (suspected) exposure to COVID-19
CPT/HCPCS: 99223-AI; 99239; J0692; J0696; J2405; J7030; J7060; J7120

== ENCOUNTER 2022-01-31 18:01 | Observation (INO) | payer MEDICARE, MEDICAID ==
[~2022-01-31] VITALS: Ht 172.7 cm; Wt 101.4 kg
[~2022-01-31 18:01] MED LIST changes: +DESYREL 100MG100 MG PO; +FARXIGA10 PO; +FIRVANQ25 MG/1 ML PO; +VANCOCIN H125 MG/CAP PO; +VERQUVO10 MG PO
[2022-01-31 18:50] LABS: BASO # 0.1 K/mm3 (0.0-0.2); BASO % 1.2 % (0.0-2.0); EOS # 1.2 K/mm3 (0.0-0.7); EOS % 17.7 % (0.0-4.0); GRAN # 2.4 K/mm3 (1.4-6.5); GRAN % 36.1 % (42.2-75.2); HEMATOCRIT 40.3 % (37.0-47.0); HEMOGLOBIN 13.6 g/dl (12.5-16.0); LYMPH # 2.4 K/mm3 (1.2-3.4); LYMPH % 35.8 % (20.0-51.0); MEAN CELL VOLUME 95 fl (80.0-100.0); MEAN CORPUSCULAR HEMOGLOBIN 32 pg (27-31); MEAN CORPUSCULAR HGB CONC 34 g/dl (33.0-37.0); MEAN PLATELET VOLUME 9.9 fl (7.4-10.4); MONO # 0.6 K/mm3 (0.1-0.6); MONO % 9.1 % (1.7-9.3); PLATELET COUNT 162 K/mm3 (130-400); RED BLOOD COUNT 4.23 M/mm3 (4.10-5.30); REDCELL DISTRIBUTION WIDTH-CV 12.5 % (11.5-14.5)
[2022-01-31 19:06] LABS: ALBUMIN 3.9 gm/dL (3.4-4.8); BILIRUBIN,TOTAL 0.4 mg/dL (0.2-1.2); C-REACTIVE PROTEIN 1.62 mg/dL (0.00-0.50); CALCIUM 9.6 mg/dL (8.4-10.2); CREATININE, serum 1.49 mg/dL (0.57-1.11); TOTAL PROTEIN 7.2 gm/dL (6.2-8.1)
--- NOTE | 2022-01-31 22:00 | NUR ---
The patient was admitted from the ED this evening. Upon arrival, the patient states she is hungry and wants warm blankets. This patient is very needy. No other concerns at this time.
[2022-01-31 22:06] VITALS: BP 116/70; PULSE 68; TEMP 98.3
[2022-01-31 23:34] VITALS: BP 91/44; PULSE 65; TEMP 98
[2022-02-01 03:23] VITALS: BP 126/58; PULSE 64; TEMP 98.2
[2022-02-01 05:12] VITALS: BP 152/86; PULSE 90; TEMP 97.8
[2022-02-01 06:29] LABS: HEMATOCRIT 39.8 % (37.0-47.0); HEMOGLOBIN 13.4 g/dl (12.5-16.0); MEAN CELL VOLUME 97 fl (80.0-100.0); MEAN CORPUSCULAR HEMOGLOBIN 33 pg (27-31); MEAN CORPUSCULAR HGB CONC 34 g/dl (33.0-37.0); PLATELET COUNT 159 K/mm3 (130-400); RED BLOOD COUNT 4.12 M/mm3 (4.10-5.30); REDCELL DISTRIBUTION WIDTH-CV 12.7 % (11.5-14.5)
--- NOTE | 2022-02-01 07:00 | NUR ---
This patient slept all night long, has not had any bowel movements for this RN this shift. The patient has been given meds per MAR. Denies any other issues. No further concern. Report given to CANDIDO Webb.
[2022-02-01 07:01] LABS: CALCIUM 9.2 mg/dL (8.4-10.2); CREATININE, serum 1.31 mg/dL (0.57-1.11); MAGNESIUM 2.1 mg/dL (1.6-2.6); POTASSIUM 4.3 mmol/L (3.5-4.5)
[2022-02-01 07:30] VITALS: BP 128/73; PULSE 60; TEMP 98.1
[2022-02-01 07:37] LABS: EOSINOPHIL 27 % (0-4); LYMPHOCYTE 36 % (20.0-51.0); NEUTROPHILS 31 % (42.0-75.2); NUCLEATED RED BLOOD CELL 6 (0-6); PLATELET ESTIMATE NORMAL (NORMAL)
--- NOTE | 2022-02-01 10:31 | NUR ---
Milled Rubber Tender met with patient to discuss discharge planning. Patient lives alone in [place] and her daughter, Jerilyn (ph#[phone]) lives in [place]. Patient was admitted to this facility last week and was discharged home with no services. Patient states over the weekend she did not feel well and yesterday had a fever and hives. Patient called her primary care office exceptional student education teacher and they advised she come to the ED. Patient sees Dr. Tatiana Cid for primary care and has her medications delivered to her home from [facility]. Patient advised her discharge medications were delivered last week with no issues. Patient does not use any DME and is independent with ADLS. Patient thinks she may have DPOA-HC but is not sure. Patient is not and Jerilyn is her only child. Patient plans to return home at time of discharge. Discharge Plan: Home
[2022-02-01 11:39] VITALS: BP 132/76; PULSE 82; TEMP 98.6
--- NOTE | 2022-02-01 16:08 | NUR ---
1600 - DISCHARGE PACKET AND PATIENT EDUCATION PROVIDED. ALL QUESTIONS ANSWERED. IV REMOVED PER PROTOCOL. PATIENT SAFELY TRANSPORTED TO ER ENTRANCE BY STAFF.
== END 2022-02-01 16:00 | disposition home or self-care (01) ==
LOC: COL.ER 18:01 → MEDICAL 21:07
PROVIDERS: Emergency Medicine; Student in an Organized Health Care Education/Training Program; ADMIT Internal Medicine
DX: A04.72 Enterocolitis due to Clostridium difficile, not specified as recurrent (principal); I10 Essential (primary) hypertension; N18.9 Chronic kidney disease, unspecified; I50.20 Unspecified systolic (congestive) heart failure; I48.91 Unspecified atrial fibrillation; E78.5 Hyperlipidemia, unspecified; E03.9 Hypothyroidism, unspecified; M79.7 Fibromyalgia; F41.0 Panic disorder [episodic paroxysmal anxiety]; Z79.01 Long term (current) use of anticoagulants; Z79.899 Other long term (current) drug therapy
CPT/HCPCS: A9270; G0378; J2405; J7030

== ENCOUNTER → 2022-08-17 | Outpatient (CLI) | payer MEDICARE, MEDICAID | LOC: MC.RAD 10:15 | DX: Z12.31 Encounter for screening mammogram for malignant neoplasm of breast (principal) ==

== ENCOUNTER 2022-11-04 14:13 | Emergency (ER) | payer MEDICARE, MEDICAID ==
[~2022-11-04] VITALS: Ht 172.7 cm; Wt 94.1 kg
[2022-11-04 14:20] VITALS: TEMP 98.3
[2022-11-04 15:04] LABS: COLLECTION METHOD CLEAN CATCH
[2022-11-04 15:12] LABS: URINE APPEARANCE Clear (CLEAR/HAZY); URINE COLOR Yellow (YELLOW)
[2022-11-04 15:13] LABS: PH 5.5 (5.0-8.5); URINE BLOOD Negative (NEGATIVE); URINE GLUCOSE 3+ (NEGATIVE); URINE KETONE Negative (NEGATIVE); URINE NITRATE Negative (NEGATIVE); URINE PROTEIN(semi-quant) Negative (NEGATIVE); URINE UROBILINOGEN 0.2 E.U/dL (0.2-1.0)
[2022-11-04 15:17] LABS: SQUAMOUS EPITHELIAL 0-2 /hpf (0-10); URINE BACTERIA None Seen /hpf (NONE SEEN); URINE RBC 0-2 /hpf (0-2)
[2022-11-04 15:18] LABS: BASO # 0.1 K/mm3 (0.0-0.2); BASO % 0.9 % (0.0-2.0); EOS # 0.2 K/mm3 (0.0-0.7); EOS % 2.2 % (0.0-4.0); GRAN # 3.7 K/mm3 (1.4-6.5); GRAN % 48.6 % (42.2-75.2); HEMOGLOBIN 14.6 g/dl (12.5-16.0); LYMPH # 2.8 K/mm3 (1.2-3.4); LYMPH % 36.5 % (20.0-51.0); MEAN CELL VOLUME 92 fl (80.0-100.0); MEAN CORPUSCULAR HEMOGLOBIN 33 pg (27-31); MEAN CORPUSCULAR HGB CONC 36 g/dl (33.0-37.0); MONO # 0.9 K/mm3 (0.1-0.6); MONO % 11.5 % (1.7-9.3); PLATELET COUNT 183 K/mm3 (130-400); RED BLOOD COUNT 4.46 M/mm3 (4.10-5.30); REDCELL DISTRIBUTION WIDTH-CV 12.1 % (11.5-14.5)
[2022-11-04 15:26] LABS: ALBUMIN 4.6 gm/dL (3.4-4.8); BILIRUBIN,TOTAL 0.6 mg/dL (0.2-1.2); CALCIUM 9.7 mg/dL (8.4-10.2); CREATININE, serum 1.28 mg/dL (0.57-1.11); POTASSIUM 4.2 mmol/L (3.5-4.5); TOTAL PROTEIN 7.5 gm/dL (6.2-8.1)
[2022-11-04 15:34] LABS: TRICYCLIC ANTIDEPRESS URINE NEGATIVE
[2022-11-04] MEDS ORDERED: CEPHALEXIN500 M1 PO (15:39)
[2022-11-04 16:09] VITALS: BP 134/90; PULSE 88
== END 2022-11-04 16:11 | disposition home or self-care (01) ==
LOC: COL.ER 14:13
PROVIDERS: Physician Assistant
DX: R44.1 Visual hallucinations (principal); N39.0 Urinary tract infection, site not specified

== ENCOUNTER → 2023-08-04 | Outpatient (CLI) | payer MEDICARE, MEDICAID ==
[~2023-08-04] MED LIST changes: +CEPHALEXIN500 M1 PO
[2023-08-04 14:57] LABS: ALANINE AMINOTRANSFERASE 27 U/L (0-55); ALBUMIN 4.7 gm/dL (3.4-4.8); ALKALINE PHOSPHATASE 53 U/L (40-150); ANION GAP 12 mmol/L (7-16); AST,SGOT 21 U/L (5-34); BILIRUBIN,TOTAL 0.5 mg/dL (0.2-1.2); BLOOD UREA NITROGEN 25 mg/dL (10-20); CALCIUM 10.3 mg/dL (8.4-10.2); CARBON DIOXIDE 28 mmol/L (23-31); CHLORIDE 101 mmol/L (98-107); CREATININE, serum 1.36 mg/dL (0.57-1.11); GLUCOSE 75 mg/dL (70-99); POTASSIUM 3.7 mmol/L (3.5-4.5); SODIUM 141 mmol/L (136-145); TOTAL PROTEIN 8.1 gm/dL (6.2-8.1)
[2023-08-04 15:07] LABS: TROPONIN-I < 0.010 ng/mL (0.00-0.033)
== END ==
LOC: COL.LAB 13:55
PROVIDERS: Nurse Practitioner
DX: I50.22 Chronic systolic (congestive) heart failure (principal); R07.89 Other chest pain

== ENCOUNTER → 2023-10-12 | Outpatient (CLI) | payer MEDICARE, MEDICAID | LOC: MC.RAD 13:51 | DX: Z12.31 Encounter for screening mammogram for malignant neoplasm of breast (principal) ==

== ENCOUNTER → 2023-12-28 | Outpatient (CLI) | payer MEDICARE ==
[~2023-12-28] MED LIST changes: +ATARAX 25MG25 MG/TAB PO; +COGENTIN 1MG1 MG/TAB PO; +LAMICTAL150 MG PO; +MOUNJARO7.5 MG/0.5 SQ; +ONE-A-DAY ESSE1 EACH PO; +PAMELOR 25MG25 MG PO; +PEPCID40 MG PO; +VALTREX1 GM PO
== END ==
LOC: MHCPAIN 13:26
DX: M70.62 Trochanteric bursitis, left hip (principal); M25.552 Pain in left hip

== ENCOUNTER → 2024-01-31 | Outpatient (CLI) | payer MEDICARE | LOC: MHCPAIN 10:24 | DX: M43.16 Spondylolisthesis, lumbar region (principal); M48.062 Spinal stenosis, lumbar region with neurogenic claudication | CPT/HCPCS: G0463 ==

== ENCOUNTER → 2024-02-16 | Outpatient (CLI) | payer MEDICARE ==
[~2024-02-16] MED LIST changes: +Iohexol 300 - 10 ML VIAL ONE; +Lidocaine PF 2% (20 MG/ML) 2 ML VIAL ONE
== END ==
LOC: MHCPAIN 12:43
DX: M54.16 Radiculopathy, lumbar region (principal)
CPT/HCPCS: J1100; Q9967

== ENCOUNTER → 2024-03-14 | Outpatient (CLI) | payer MEDICARE ==
[~2024-03-14] MED LIST changes: -Iohexol 300 - 10 ML VIAL ONE; -Lidocaine PF 2% (20 MG/ML) 2 ML VIAL ONE
== END ==
LOC: MHCPAIN 14:51
DX: M43.16 Spondylolisthesis, lumbar region (principal); M79.7 Fibromyalgia; M54.50 Low back pain, unspecified; M25.552 Pain in left hip; E11.9 Type 2 diabetes mellitus without complications; Z79.84 Long term (current) use of oral hypoglycemic drugs; I25.10 Atherosclerotic heart disease of native coronary artery without angina pectoris; Z79.01 Long term (current) use of anticoagulants
CPT/HCPCS: G0463

== ENCOUNTER → 2024-04-12 | Outpatient (CLI) | payer MEDICARE | LOC: MHCPAIN 08:04 | DX: M47.817 Spondylosis without myelopathy or radiculopathy, lumbosacral region (principal); M54.50 Low back pain, unspecified; Z95.818 Presence of other cardiac implants and grafts | CPT/HCPCS: J0665 ==

== ENCOUNTER → 2024-04-16 | Outpatient (CLI) | payer MEDICARE | LOC: MHCPAIN 15:58 | DX: M47.816 Spondylosis without myelopathy or radiculopathy, lumbar region (principal); M48.061 Spinal stenosis, lumbar region without neurogenic claudication; M54.50 Low back pain, unspecified; M79.7 Fibromyalgia; I25.10 Atherosclerotic heart disease of native coronary artery without angina pectoris; Z79.01 Long term (current) use of anticoagulants; E11.9 Type 2 diabetes mellitus without complications; Z79.85 Long-term (current) use of injectable non-insulin antidiabetic drugs; M25.552 Pain in left hip; Z95.0 Presence of cardiac pacemaker | CPT/HCPCS: G0463 ==

== ENCOUNTER → 2024-05-10 | Outpatient (CLI) | payer MEDICARE | LOC: MHCPAIN 08:16 | DX: M47.817 Spondylosis without myelopathy or radiculopathy, lumbosacral region (principal); M54.50 Low back pain, unspecified | CPT/HCPCS: J0665 ==

== ENCOUNTER → 2024-06-11 | Outpatient (CLI) | payer MEDICARE ==
[~2024-06-11] MED LIST changes: +Lidocaine PF 2% (20 MG/ML) 5 ML VIAL ONE; +Midazolam 2 MG/2 ML VIAL ONE; +fentaNYL 50 MCG/ML 2 ML VIAL ONE
== END ==
LOC: MHCPAIN 09:27
DX: M47.817 Spondylosis without myelopathy or radiculopathy, lumbosacral region (principal); M54.50 Low back pain, unspecified
CPT/HCPCS: J0665; J2250; J3010